=== PATIENT | male | born 1935 | race Caucasian/White ===

== ENCOUNTER 2017-11-15 17:11 | Inpatient (IN) | payer MEDICARE, BC ==
[~2017-11-15] VITALS: Ht 190.5 cm; Wt 122.7 kg
[2017-11-15 20:10] LABS: BASOPHILS # (AUTO) 0.1 X10'3 (0-0.2); BASOPHILS % (AUTO) 1.3 % (0-1); EOSINOPHILS # (AUTO) 0.2 X10'3 (0-0.9); HEMATOCRIT 27.1 % (42.0-52.0); LYMPHOCYTES % (AUTO) 13.3 % (21-51); MEAN CORPUSCULAR HEMOGLOBIN 29.5 PG (27.0-31.0); MEAN CORPUSCULAR HGB CONC 33.1 % (33.0-36.5); MEAN CORPUSCULAR VOLUME 89.2 FL (78-98); MEAN PLATELET VOLUME 9.3 FL (7.4-10.4); MONOCYTES # (AUTO) 1.3 X10'3 (0-0.9); MONOCYTES % (AUTO) 16.6 % (2-12); NEUTROPHILS % (AUTO) 65.8 % (42-75); PLATELET COUNT 158 X10'3 (140-440); RED BLOOD COUNT 3.04 X10'6 (4.70-6.10); RED CELL DISTRIBUTION WIDTH 17.5 % (11.5-14.5); WHITE BLOOD COUNT 7.6 X10'3 (4.5-11.0)
[2017-11-15 20:19] LABS: INR 1.2 INR; PARTIAL THROMBOPLASTIN TIME 32 SECONDS (22-32); PROTHROMBIN TIME 12.3 SECONDS (9.0-12.0)
[2017-11-15 20:22] LABS: ALANINE AMINOTRANSFERASE 24 U/L (12-78); ALBUMIN 3.2 G/DL (3.4-5.0); ALBUMIN/GLOBULIN RATIO 0.8 (1.1-1.5); ALKALINE PHOSPHATASE 69 IU/L (46-116); ANION GAP 8 (8-16); ASPARTATE AMINO TRANSFERASE 29 U/L (10-37); BILIRUBIN,TOTAL 0.8 MG/DL (0.1-1.0); BLOOD UREA NITROGEN 38 MG/DL (7-18); BUN/CREATININE RATIO 24.7 (5.4-32.0); CALCIUM 8.9 MG/DL (8.5-10.1); CHLORIDE 105 MMOL/L (99-107); CREATININE 1.54 MG/DL (0.60-1.10); GLUCOSE 122 MG/DL (70-104); SODIUM 138 MMOL/L (135-145); TOTAL CARBON DIOXIDE 25.4 MMOL/L (24-32); eGFR 43 ML/MIN
[2017-11-15] MEDS ORDERED: furosemide 10 MG/1 ML 10ml inj IV ONE (20:50)
[2017-11-15] MEDS ORDERED: FINA5TAB11 PO (21:06)
[2017-11-15] MEDS ORDERED: PRAM0.5T3 PO (21:06)
[2017-11-15] MEDS ORDERED: CALC0.253 PO (21:06)
[2017-11-15] MEDS ORDERED: VITA-268 PO (21:06)
[2017-11-15] MEDS ORDERED: TRAZ-143 PO (21:06)
[2017-11-15] MEDS ORDERED: ATOR40TA PO (21:06)
[2017-11-15] MEDS ORDERED: POTA10TA19 PO (21:06)
[2017-11-15] MEDS ORDERED: AMLO-93 PO (21:06)
[2017-11-15] MEDS ORDERED: ALLO100T PO (21:06)
[2017-11-15] MEDS ORDERED: FURO40TA4 PO (21:06)
[2017-11-15] MEDS ORDERED: ASPI81TA52 PO (21:06)
[2017-11-15] MEDS ORDERED: CARV-50 PO (21:06)
[2017-11-15] MEDS ORDERED: DIGO125T PO (21:06)
[2017-11-15] MEDS ORDERED: APIX5TAB3 PO (21:06)
[2017-11-15] MEDS ORDERED: QUET25TA PO (21:06)
[2017-11-15] MEDS ORDERED: ENAL20TA75 PO (21:06)
[2017-11-15] MEDS ORDERED: LIDO1ADH44 TOP (22:35)
[2017-11-15] MEDS ORDERED: GUAI400T77 PO (22:35)
[2017-11-15] MEDS ORDERED: TROS20TA4 PO (22:35)
[2017-11-15] MEDS ORDERED: PSYL575P22 PO (22:35)
[2017-11-15] MEDS ORDERED: SENN8.6T73 PO (22:35)
[2017-11-15] MEDS ORDERED: MAGN400O6 PO (22:35)
[2017-11-15] MEDS ORDERED: VENL150T3 PO (22:35)
[2017-11-15] MEDS ORDERED: ALBU18HF2 INH (22:35)
[2017-11-15] MEDS ORDERED: GUAI1TBM19 PO (22:35)
[2017-11-15 22:52] LABS: CLARITY,URINE CLEAR (Clear); COLOR,URINE YELLOW (Yellow); GLUCOSE, URINE NEGATIVE (Neg); KETONES,URINE NEGATIVE (Neg); LEUKOCYTE ESTERASE ,URINE SMALL (Neg); NITRITES, URINE NEGATIVE (Neg); OCCULT BLOOD,URINE LARGE (Neg); PROTEIN,URINE 100 mg/dl (Neg)
[2017-11-15 22:56] LABS: UA COLLECTION TYPE FOLEY CATH
[2017-11-15 22:58] LABS: WBC,URINE 30-50 /HPF (0-4)
[2017-11-15 22:59] LABS: BACTERIA,URINE 1+ /HPF (Neg); MUCUS STRANDS NONE SEEN /LPF (Neg); RBC,URINE 50-100 /HPF (0-2); SQUAMOUS EPITHELIAL CELL,UR NONE SEEN /LPF (FEW)
[2017-11-15 23:00] LABS: AMORPHOUS URATES 2+
[2017-11-16] VITALS (8 sets, daily range): BP systolic 111–164; BP diastolic 64–97
[2017-11-16] MEDS ORDERED: quetiapine 100mg tablet PO STA ×2 (00:30→00:41)
[2017-11-16] MEDS ORDERED: traZODone 50mg tablet PO STA (00:30)
[2017-11-16] MEDS ORDERED: mag hydrox/Alum hydrox/simeth 30ml oral suspension PO PRN (01:45)
[2017-11-16] MEDS ORDERED: ondansetron/PF 4mg/2ml inj IV PRN (01:45)
[2017-11-16] MEDS ORDERED: magnesium hydroxide 30ml (MOM) UD suspension PO PRN (01:45)
[2017-11-16] MEDS ORDERED: acetaminophen 325mg tablet PO PRN (01:45)
[2017-11-16] MEDS ORDERED: CefTRIAXone/D5W-Rocephin 1gm 50 ML IV ONE (01:45)
[2017-11-16] MEDS ORDERED: sennosides 8.6mg tablet PO PRN (01:50)
[2017-11-16] MEDS: albuterol 2.5 MG/3 ML nebule NEB PRN ×2 (04:17→08:08)
[2017-11-16] MEDS ORDERED: furosemide 10 MG/1 ML 10ml inj IV ONE (05:20)
[2017-11-16] MEDS ORDERED: furosemide 40mg/4ml inj ONE (05:23)
[2017-11-16] MEDS ORDERED: nitroGLYCERIN 1gm ointment UD TP ONE (05:25)
[2017-11-16] MEDS ORDERED: LORazepam 2 mg/ml vial IV ONE (05:55)
[2017-11-16] MEDS ORDERED: LORazepam 2 mg/ml vial ONE (05:57)
[2017-11-16] MEDS: finasteride 5mg tablet PO SCH (08:00)
[2017-11-16] MEDS: carVEDilol 12.5mg tablet PO SCH ×2 (08:05→17:22)
[2017-11-16] MEDS: lisinopril 20mg tablet PO SCH (08:05)
[2017-11-16] MEDS: digoxin 125mcg (0.125mg) tablet PO SCH (08:05)
[2017-11-16] MEDS: amLODIPine 5mg tablet PO SCH (08:05)
[2017-11-16] MEDS ORDERED: QUET25TA PO (08:11)
[2017-11-16] MEDS ORDERED: methylPREDNISolone sod succ 125mg/2ml vial ONE (08:23)
[2017-11-16] MEDS ORDERED: methylPREDNISolone sod succ 125mg/2ml vial IV ONE (08:25)
[2017-11-16 08:26] LABS: ABG HCO3 21.8 mmol/L (22.0-26.0); ABG OXYGEN SATURATION 93.4 % (95-98); ABG PCO2 (T) 33.7 mmHg (35.0-48.0); ABG PH (T) 7.429 (7.350-7.450); ABG PO2 (T) 71.3 mmHg (83-108); ALLEN'S TEST Positive; FCOHb 0.2 % (0.5-1.5); FLOW 8 L/min; FMetHb 0.1 % (0.3-1.12); FO2Hb 93.1 % (94-100)
[2017-11-16 08:29] LABS: BASOPHILS # (AUTO) 0.2 X10'3 (0-0.2); BASOPHILS % (AUTO) 1.6 % (0-1); EOSINOPHILS % (AUTO) 0.3 % (0-6); HEMOGLOBIN 9.4 g/dl (14.0-17.9); LYMPHOCYTES # (AUTO) 0.7 X10'3 (1.1-4.8); MEAN CORPUSCULAR HEMOGLOBIN 30.2 PG (27.0-31.0); MEAN CORPUSCULAR HGB CONC 33.5 % (33.0-36.5); MEAN CORPUSCULAR VOLUME 90.2 FL (78-98); MEAN PLATELET VOLUME 9.6 FL (7.4-10.4); MONOCYTES # (AUTO) 1.3 X10'3 (0-0.9); MONOCYTES % (AUTO) 10.9 % (2-12); NEUTROPHILS # (AUTO) 9.6 X10'3 (1.8-7.7); NEUTROPHILS % (AUTO) 81.2 % (42-75); PLATELET COUNT 159 X10'3 (140-440); RED CELL DISTRIBUTION WIDTH 17.6 % (11.5-14.5); WHITE BLOOD COUNT 11.8 X10'3 (4.5-11.0)
[2017-11-16] MEDS ORDERED: furosemide 40mg/4ml inj IV STA (08:29)
[2017-11-16] MEDS: furosemide 10 MG/1 ML 10ml inj IV SCH ×2 (08:35→20:55)
[2017-11-16 08:40] LABS: ALANINE AMINOTRANSFERASE 25 U/L (12-78); ALBUMIN 3.4 G/DL (3.4-5.0); ALBUMIN/GLOBULIN RATIO 0.9 (1.1-1.5); ALKALINE PHOSPHATASE 73 IU/L (46-116); ANION GAP 11 (8-16); ASPARTATE AMINO TRANSFERASE 27 U/L (10-37); BILIRUBIN,TOTAL 1.6 MG/DL (0.1-1.0); BLOOD UREA NITROGEN 38 MG/DL (7-18); BUN/CREATININE RATIO 24.4 (5.4-32.0); CALCIUM 9.4 MG/DL (8.5-10.1); CHLORIDE 103 MMOL/L (99-107); CREATININE 1.56 MG/DL (0.60-1.10); GLUCOSE 134 MG/DL (70-104); POTASSIUM 4.2 MMOL/L (3.5-5.1); SODIUM 138 MMOL/L (135-145); TOTAL CARBON DIOXIDE 24.2 MMOL/L (24-32); TOTAL PROTEIN 7.3 G/DL (6.4-8.2); eGFR 43 ML/MIN
[2017-11-16] MEDS: atorvastatin 20mg tablet PO SCH (13:00)
[2017-11-16] MEDS: allopurinol 100mg tablet PO SCH (13:00)
[2017-11-16] MEDS: apixaban 5mg tablet PO SCH ×2 (13:00→20:56)
[2017-11-16] MEDS: venlafaxine XR 75mg capsule (Q24H) PO SCH (13:00)
[2017-11-16] MEDS: aspirin 81mg tablet.DR PO SCH (13:00)
[2017-11-16] MEDS: QUEtiapine 25mg tablet PO SCH ×3 (13:06→20:56)
[2017-11-16] MEDS: potassium chloride 10mEq ER tablet PO SCH ×2 (13:06→20:56)
[2017-11-16] MEDS ORDERED: HYDROcodone/acetaminophen 5mg/325mg tablet PO PRN (14:40)
[2017-11-16] MEDS ORDERED: traZODone 50mg tablet PO SCH (20:00)
[2017-11-16] MEDS: pramipexole 0.25mg tablet PO SCH (20:56)
[2017-11-16] MEDS: traZODone 50mg tablet PO SCH (20:56)
[2017-11-16] MEDS ORDERED: QUEtiapine 25mg tablet PO SCH (21:00)
[2017-11-17] VITALS (10 sets, daily range): BP systolic 111–154; BP diastolic 63–93
[2017-11-17 07:06] LABS: BASOPHILS % (AUTO) 0.1 % (0-1); EOSINOPHILS % (AUTO) 0 % (0-6); HEMATOCRIT 24.6 % (42.0-52.0); HEMOGLOBIN 8.3 g/dl (14.0-17.9); LYMPHOCYTES # (AUTO) 0.7 X10'3 (1.1-4.8); LYMPHOCYTES % (AUTO) 7.7 % (21-51); MEAN CORPUSCULAR HEMOGLOBIN 30.1 PG (27.0-31.0); MEAN CORPUSCULAR HGB CONC 33.7 % (33.0-36.5); MEAN CORPUSCULAR VOLUME 89.4 FL (78-98); MEAN PLATELET VOLUME 9.6 FL (7.4-10.4); MONOCYTES # (AUTO) 0.9 X10'3 (0-0.9); MONOCYTES % (AUTO) 10.7 % (2-12); NEUTROPHILS # (AUTO) 7.1 X10'3 (1.8-7.7); NEUTROPHILS % (AUTO) 81.5 % (42-75); PLATELET COUNT 142 X10'3 (140-440); RED BLOOD COUNT 2.75 X10'6 (4.70-6.10); RED CELL DISTRIBUTION WIDTH 17.5 % (11.5-14.5); WHITE BLOOD COUNT 8.7 X10'3 (4.5-11.0)
[2017-11-17 07:21] LABS: ANION GAP 9 (8-16); BILIRUBIN,TOTAL 1.1 MG/DL (0.1-1.0); BLOOD UREA NITROGEN 48 MG/DL (7-18); BUN/CREATININE RATIO 31.2 (5.4-32.0); CALCIUM 9.2 MG/DL (8.5-10.1); CHLORIDE 106 MMOL/L (99-107); CREATININE 1.54 MG/DL (0.60-1.10); GLUCOSE 146 MG/DL (70-104); POTASSIUM 3.7 MMOL/L (3.5-5.1); SODIUM 141 MMOL/L (135-145); TOTAL CARBON DIOXIDE 25.8 MMOL/L (24-32); eGFR 43 ML/MIN
[2017-11-17 07:22] LABS: ALANINE AMINOTRANSFERASE 25 U/L (12-78); ALBUMIN 2.9 G/DL (3.4-5.0); ALBUMIN/GLOBULIN RATIO 0.8 (1.1-1.5); ALKALINE PHOSPHATASE 60 IU/L (46-116); ASPARTATE AMINO TRANSFERASE 27 U/L (10-37); TOTAL PROTEIN 6.5 G/DL (6.4-8.2)
[2017-11-17] MEDS: digoxin 125mcg (0.125mg) tablet PO SCH (07:59)
[2017-11-17] MEDS: calcitriol 0.25mcg capsule PO SCH (08:04)
[2017-11-17] MEDS: aspirin 81mg tablet.DR PO SCH (08:04)
[2017-11-17] MEDS: atorvastatin 20mg tablet PO SCH (08:04)
[2017-11-17] MEDS: amLODIPine 5mg tablet PO SCH (08:05)
[2017-11-17] MEDS: carVEDilol 12.5mg tablet PO SCH ×2 (08:05→17:37)
[2017-11-17] MEDS: venlafaxine XR 75mg capsule (Q24H) PO SCH (08:06)
[2017-11-17] MEDS: allopurinol 100mg tablet PO SCH (08:06)
[2017-11-17] MEDS: finasteride 5mg tablet PO SCH (08:07)
[2017-11-17] MEDS: lisinopril 20mg tablet PO SCH (08:07)
[2017-11-17] MEDS: potassium chloride 10mEq ER tablet PO SCH ×2 (08:08→20:45)
[2017-11-17] MEDS: furosemide 10 MG/1 ML 10ml inj IV SCH ×2 (08:11→20:44)
[2017-11-17] MEDS: apixaban 5mg tablet PO SCH ×2 (08:17→20:44)
[2017-11-17] MEDS: QUEtiapine 25mg tablet PO SCH ×3 (08:18→20:45)
[2017-11-17 10:20] LABS: ABG BASE EXCESS 0.3 mmol/L (-2.0-3.0); ABG HCO3 24.4 mmol/L (22.0-26.0); ABG OXYGEN SATURATION 91.9 % (95-98); ABG PCO2 (T) 37.5 mmHg (35.0-48.0); ABG PH (T) 7.432 (7.350-7.450); ABG PO2 (T) 62.7 mmHg (83-108); ALLEN'S TEST Positive; FCOHb 0.2 % (0.5-1.5); FLOW 5 L/min; FMetHb 0.1 % (0.3-1.12); FO2Hb 91.6 % (94-100); TOTAL HEMOGLOBIN 9.3 G/dl (14.0-18.0)
[2017-11-17] MEDS ORDERED: vancomycin/NS 1 GM ADD-VANTAGE 250 ML IV SCH (14:25)
[2017-11-17] MEDS: pramipexole 0.25mg tablet PO SCH (20:44)
[2017-11-17] MEDS: traZODone 50mg tablet PO SCH (20:45)
[2017-11-18 03:00] VITALS: BP 147/77
[2017-11-18 05:53] LABS: BASOPHILS # (AUTO) 0.1 X10'3 (0-0.2); EOSINOPHILS # (AUTO) 0.2 X10'3 (0-0.9); EOSINOPHILS % (AUTO) 1.7 % (0-6); HEMATOCRIT 27.3 % (42.0-52.0); LYMPHOCYTES # (AUTO) 1.3 X10'3 (1.1-4.8); LYMPHOCYTES % (AUTO) 12.7 % (21-51); MEAN CORPUSCULAR HEMOGLOBIN 29.4 PG (27.0-31.0); MEAN CORPUSCULAR HGB CONC 32.9 % (33.0-36.5); MEAN CORPUSCULAR VOLUME 89.4 FL (78-98); MEAN PLATELET VOLUME 9.2 FL (7.4-10.4); MONOCYTES # (AUTO) 1.4 X10'3 (0-0.9); NEUTROPHILS # (AUTO) 7.2 X10'3 (1.8-7.7); NEUTROPHILS % (AUTO) 70.6 % (42-75); PLATELET COUNT 147 X10'3 (140-440); RED BLOOD COUNT 3.05 X10'6 (4.70-6.10); RED CELL DISTRIBUTION WIDTH 17.4 % (11.5-14.5); WHITE BLOOD COUNT 10.2 X10'3 (4.5-11.0)
[2017-11-18 06:00] VITALS: BP 143/78
[2017-11-18 06:16] LABS: ALANINE AMINOTRANSFERASE 27 U/L (12-78); ALBUMIN/GLOBULIN RATIO 0.8 (1.1-1.5); ALKALINE PHOSPHATASE 59 IU/L (46-116); ANION GAP 9 (8-16); ASPARTATE AMINO TRANSFERASE 34 U/L (10-37); BILIRUBIN,TOTAL 1.1 MG/DL (0.1-1.0); BLOOD UREA NITROGEN 44 MG/DL (7-18); BUN/CREATININE RATIO 32.6 (5.4-32.0); CALCIUM 9.2 MG/DL (8.5-10.1); CHLORIDE 105 MMOL/L (99-107); CREATININE 1.35 MG/DL (0.60-1.10); GLUCOSE 121 MG/DL (70-104); POTASSIUM 3.7 MMOL/L (3.5-5.1); SODIUM 142 MMOL/L (135-145); TOTAL CARBON DIOXIDE 28.2 MMOL/L (24-32); TOTAL PROTEIN 6.9 G/DL (6.4-8.2); eGFR 51 ML/MIN
[2017-11-18] MEDS: furosemide 10 MG/1 ML 10ml inj IV SCH (07:26)
[2017-11-18] MEDS: aspirin 81mg tablet.DR PO SCH (07:27)
[2017-11-18] MEDS: QUEtiapine 25mg tablet PO SCH ×3 (07:27→20:44)
[2017-11-18] MEDS: apixaban 5mg tablet PO SCH ×2 (07:27→20:43)
[2017-11-18] MEDS: venlafaxine XR 75mg capsule (Q24H) PO SCH (07:28)
[2017-11-18] MEDS: atorvastatin 20mg tablet PO SCH (07:28)
[2017-11-18] MEDS: lisinopril 20mg tablet PO SCH (07:28)
[2017-11-18] MEDS: digoxin 125mcg (0.125mg) tablet PO SCH (07:29)
[2017-11-18] MEDS: potassium chloride 10mEq ER tablet PO SCH ×2 (07:29→20:44)
[2017-11-18] MEDS: finasteride 5mg tablet PO SCH (07:29)
[2017-11-18] MEDS: amLODIPine 5mg tablet PO SCH (07:29)
[2017-11-18] MEDS: allopurinol 100mg tablet PO SCH (07:29)
[2017-11-18] MEDS: carVEDilol 12.5mg tablet PO SCH ×2 (07:29→17:41)
[2017-11-18] MEDS: albuterol 2.5 MG/3 ML nebule NEB PRN (07:42)
[2017-11-18 11:00] VITALS: BP 148/61
[2017-11-18 15:00] VITALS: BP 126/59
[2017-11-18 19:00] VITALS: BP 158/79
[2017-11-18] MEDS: pramipexole 0.25mg tablet PO SCH (20:43)
[2017-11-18] MEDS: furosemide 40mg tablet PO SCH (20:44)
[2017-11-18] MEDS: traZODone 50mg tablet PO SCH (20:44)
[2017-11-18] MEDS: lactobacillus rhamnosus 10,000 MMU CELLS/CAPSULE PO SCH (20:45)
[2017-11-18 23:00] VITALS: BP 128/69
[2017-11-19] MEDS ORDERED: VANCOMYCIN LEVEL IV ONE (02:30)
[2017-11-19 03:00] VITALS: BP 112/62
[2017-11-19 03:28] LABS: BASOPHILS # (AUTO) 0.1 X10'3 (0-0.2); BASOPHILS % (AUTO) 1.9 % (0-1); EOSINOPHILS # (AUTO) 0.3 X10'3 (0-0.9); HEMATOCRIT 27.4 % (42.0-52.0); HEMOGLOBIN 8.9 g/dl (14.0-17.9); LYMPHOCYTES # (AUTO) 1.2 X10'3 (1.1-4.8); MEAN CORPUSCULAR HGB CONC 32.4 % (33.0-36.5); MEAN CORPUSCULAR VOLUME 89.7 FL (78-98); MEAN PLATELET VOLUME 9.2 FL (7.4-10.4); MONOCYTES % (AUTO) 14.9 % (2-12); NEUTROPHILS # (AUTO) 4.4 X10'3 (1.8-7.7); NEUTROPHILS % (AUTO) 62.2 % (42-75); PLATELET COUNT 156 X10'3 (140-440); RED BLOOD COUNT 3.05 X10'6 (4.70-6.10); RED CELL DISTRIBUTION WIDTH 18.2 % (11.5-14.5)
[2017-11-19 03:41] LABS: ALANINE AMINOTRANSFERASE 26 U/L (12-78); ALBUMIN 2.8 G/DL (3.4-5.0); ALBUMIN/GLOBULIN RATIO 0.8 (1.1-1.5); ALKALINE PHOSPHATASE 58 IU/L (46-116); ANION GAP 6 (8-16); ASPARTATE AMINO TRANSFERASE 41 U/L (10-37); BILIRUBIN,TOTAL 1.1 MG/DL (0.1-1.0); BLOOD UREA NITROGEN 35 MG/DL (7-18); BUN/CREATININE RATIO 30.4 (5.4-32.0); CALCIUM 9.3 MG/DL (8.5-10.1); CHLORIDE 106 MMOL/L (99-107); CREATININE 1.15 MG/DL (0.60-1.10); GLUCOSE 112 MG/DL (70-104); POTASSIUM 3.5 MMOL/L (3.5-5.1); SODIUM 141 MMOL/L (135-145); TOTAL CARBON DIOXIDE 28.6 MMOL/L (24-32); TOTAL PROTEIN 6.5 G/DL (6.4-8.2); eGFR 61 ML/MIN
[2017-11-19 03:42] LABS: VANCOMYCIN,TROUGH 18.4 UG/ML (6.0-14.0)
[2017-11-19 06:00] VITALS: BP 149/77
[2017-11-19] MEDS: potassium chloride 10mEq ER tablet PO SCH (07:19)
[2017-11-19] MEDS: allopurinol 100mg tablet PO SCH (07:19)
[2017-11-19] MEDS: carVEDilol 12.5mg tablet PO SCH (07:19)
[2017-11-19] MEDS: atorvastatin 20mg tablet PO SCH (07:19)
[2017-11-19] MEDS: aspirin 81mg tablet.DR PO SCH (07:19)
[2017-11-19] MEDS: amLODIPine 5mg tablet PO SCH (07:19)
[2017-11-19] MEDS: venlafaxine XR 75mg capsule (Q24H) PO SCH (07:19)
[2017-11-19] MEDS: lactobacillus rhamnosus 10,000 MMU CELLS/CAPSULE PO SCH (07:19)
[2017-11-19] MEDS: finasteride 5mg tablet PO SCH (07:19)
[2017-11-19] MEDS: calcitriol 0.25mcg capsule PO SCH (07:19)
[2017-11-19] MEDS: apixaban 5mg tablet PO SCH (07:20)
[2017-11-19] MEDS: QUEtiapine 25mg tablet PO SCH (07:20)
[2017-11-19] MEDS: lisinopril 20mg tablet PO SCH (07:20)
[2017-11-19] MEDS: digoxin 125mcg (0.125mg) tablet PO SCH (07:20)
[2017-11-19 09:01] VITALS: BP 127/90
[2017-11-19] MEDS: furosemide 40mg tablet PO SCH (09:03)
[2017-11-19 11:00] VITALS: BP 126/70
== END 2017-11-19 16:10 | DRG 291 ==
LOC: ER 17:12 → ED HOLD 11-16 01:43 → ORTHO 4S 11-16 03:12 → PCU 3S 11-16 08:45
PROVIDERS: ADMIT Internal Medicine; ATTEND Internal Medicine
PROC: 5A09357 Assistance with Respiratory Ventilation, Less than 24 Consecutive Hours, Continuous Positive Airway Pressure (ICD-10-PCS; principal; 2017-11-16)
DX: I13.0 Hypertensive heart and chronic kidney disease with heart failure and stage 1 through stage 4 chronic kidney disease, or unspecified chronic kidney disease (principal); I50.41 Acute combined systolic (congestive) and diastolic (congestive) heart failure; J96.01 Acute respiratory failure with hypoxia; G93.41 Metabolic encephalopathy; N39.0 Urinary tract infection, site not specified; N17.9 Acute kidney failure, unspecified; I42.9 Cardiomyopathy, unspecified; E78.00 Pure hypercholesterolemia, unspecified; F03.90 Unspecified dementia, unspecified severity, without behavioral disturbance, psychotic disturbance, mood disturbance, and anxiety; G47.00 Insomnia, unspecified; G47.33 Obstructive sleep apnea (adult) (pediatric); I25.10 Atherosclerotic heart disease of native coronary artery without angina pectoris; B95.2 Enterococcus as the cause of diseases classified elsewhere; I48.2 Chronic atrial fibrillation; I87.8 Other specified disorders of veins; N18.9 Chronic kidney disease, unspecified; N43.3 Hydrocele, unspecified; N50.89 Other specified disorders of the male genital organs; N40.1 Benign prostatic hyperplasia with lower urinary tract symptoms; R32 Unspecified urinary incontinence; Z95.1 Presence of aortocoronary bypass graft; Z79.01 Long term (current) use of anticoagulants; Z79.899 Other long term (current) drug therapy; Z88.0 Allergy status to penicillin; Z88.1 Allergy status to other antibiotic agents; Z87.891 Personal history of nicotine dependence
CPT/HCPCS: 36415; 36600; 71045; 76775; 76870; 80053; 80162; 80202; 81001; 82803; 83880; 84484; 85018; 85025; 85610; 85730; 87070; 87077; 87088; 87186; 92616; 93005; 93306; 94640; 94660; 94760; 96374; 97110; 97116; 97162; 97530; 99285; A6213; A6250; J0696; J1940; J2060; J2930; J3370; J7030